=== PATIENT | male | born 1980 | race Caucasian/White ===

== ENCOUNTER 2022-04-10 17:24 | Emergency (ER) | payer OTHER ==
[~2022-04-10] VITALS: Ht 167.6 cm; Wt 63.2 kg
== END 2022-04-13 16:25 | disposition short-term general hospital (02) ==
LOC: ED 17:24
DX: R45.851 Suicidal ideations (principal); Z20.822 Contact with and (suspected) exposure to COVID-19; F43.10 Post-traumatic stress disorder, unspecified; F31.9 Bipolar disorder, unspecified; Z88.6 Allergy status to analgesic agent
CPT/HCPCS: 36415; 80053; 81001; 84443; 85025; 87088; 87502; 99285; A9270; C9803; G0480; U0003

== ENCOUNTER 2022-10-23 19:27 | Emergency (ER) | payer OTHER ==
[~2022-10-23] VITALS: Ht 172.7 cm; Wt 76.8 kg
[2022-10-26 10:05] VITALS: BP 104/80
== END 2022-10-26 10:05 | disposition short-term general hospital (02) ==
LOC: ED 19:27
DX: R45.851 Suicidal ideations (principal); F31.9 Bipolar disorder, unspecified; Z20.822 Contact with and (suspected) exposure to COVID-19; F41.9 Anxiety disorder, unspecified; F43.10 Post-traumatic stress disorder, unspecified; R82.5 Elevated urine levels of drugs, medicaments and biological substances; Z88.5 Allergy status to narcotic agent
CPT/HCPCS: 36415; 80053; 81003; 84443; 85025; 99285; C9803; G0480; U0003